=== PATIENT | female | born 1960 | race Caucasian/White ===

== ENCOUNTER 2017-03-05 12:47 | Emergency (ER) | payer BC ==
[2017-03-05 14:56] VITALS: BP 133/65
--- NOTE | 2017-03-05 15:01 | UC ---
Lower Extremity/Ankle HPI - HPI Summary HPI Summary: fell bruising right proximal radius/ and left knee--full ROM but is painful - History of Current Complaint Chief Complaint: UCGeneralIllness Stated Complaint: RIGHT ARM/LEFT KNEE PAIN S/P FALL Time Seen by Provider: 03/05/17 14:52 Hx Obtained From: Patient ?: No Onset/Duration: Sudden Onset, Lasting Days, Still Present Severity Initially: Mild Severity Currently: Mild Aggravating Factor(s): Standing, Ambulation Alleviating Factor(s): Rest, Elevation Able to Bear Weight: Yes - Allergies/Home Medications Allergies/Adverse Reactions: Allergies Allergy/AdvReac Type Severity Reaction Status Date / Time Adhesive Tape Allergy Unknown Verified 03/05/17 14:44 Reaction Details Amoxicillin [From Augmentin] Allergy GI PROBLEMS Verified 03/05/17 14:44 Clavulanic Acid Allergy GI PROBLEMS Verified 03/05/17 14:44 [From Augmentin] Clindamycin Allergy GI PROBLEMS Verified 03/05/17 14:44 Latex Allergy SWELLING, Verified 03/05/17 14:44 BREATHING PROBLEMS Quinidine Allergy GI PROBLEMS Verified 03/05/17 14:44 Sulfa Antibiotics Allergy GI Verified 03/05/17 14:44 PEPPER Allergy GI Uncoded 03/05/17 14:44 PROBLEMS/BREATHING STERI-STRIPS Allergy Unknown Uncoded 03/05/17 14:44 Reaction Details Home Medications: Home Medications Ropinirole TAB* [Requip TAB*] 0.5 mg BEDTIME 03/05/17 [History Confirmed ] PMH/Surg Hx/FS Hx/Imm Hx Previously Healthy: No Endocrine History: Dyslipidemia Cardiovascular History: Hypertension Respiratory History: Asthma GI/ History: Gastroesophageal Reflux Psychological History: Depression - Surgical History Surgical History: Yes Surgery Procedure, Year, and Place: ; TUBAL LIGATION; D&C WITH ABLATION ; ESOPHAGEAL DILATION- WITH SEDATION COLONOSCOPY WITH SEDATION - Family History Known Family History: Positive: None - Social History Occupation: Employed Full-time Lives: With Family Alcohol Use: None Substance Use Type: None Smoking Status (MU): Never Smoked Tobacco - Immunization History Most Recent Influenza Vaccination: 2016 Review of Systems Constitutional: Negative Skin: Bruising - right proximal forearm, Eyes: Negative ENT: Negative Respiratory: Negative Cardiovascular: Negative Gastrointestinal: Negative Genitourinary: Negative Motor: Negative Neurovascular: Negative Musculoskeletal: Negative, Arthralgia - right fore arm, left knee Neurological: Negative Psychological: Negative Is Patient Immunocompromised?: No All Other Systems Reviewed And Are Negative: Yes Physical Exam Triage Information Reviewed: Yes Appearance: Well-Appearing, No Pain Distress, Well-Nourished Vital Signs: Initial Vital Signs Temp 98.4 F 03/05/17 14:47 Pulse 81 03/05/17 14:47 Resp 16 03/05/17 14:47 BP 133/65 03/05/17 14:47 Pulse Ox 100 03/05/17 14:47 Vital Signs Reviewed: Yes Eye Exam: Normal Eyes: Positive: Conjunctiva Clear ENT Exam: Normal ENT: Positive: Normal ENT inspection, Hearing grossly normal. Negative: Nasal congestion, Trismus, Muffled voice, Hoarse voice Dental Exam: Normal Neck exam: Normal Neck: Positive: Supple, Nontender, No Lymphadenopathy Respiratory Exam: Normal Respiratory: Positive: Chest non-tender, Lungs clear, Normal breath sounds, No respiratory distress, No accessory muscle use Cardiovascular Exam: Normal Cardiovascular: Positive: RRR, No Murmur, Pulses Normal, Brisk Capillary Refill Musculoskeletal Exam: Normal Musculoskeletal: Positive: Strength Intact, ROM Intact, No Edema Neurological Exam: Normal Neurological: Positive: Alert Psychological Exam: Normal Skin Exam: Other Skin: Positive: Other - bruising right proximal fore arm Diagnostics - Radiology No standard instances Xray Interpretation: No Acute Changes Radiology Interpretation Completed By: Radiologist Lower Extremity Course/Dx - Course Course Of Treatment: rice, ibuprofen christin wrap follow with orthopedic MD in [place] as needed - Differential Dx/Diagnosis Provider Diagnoses: Contusion right forearm and left knee Discharge - Discharge Plan Condition: Stable Disposition: HOME Patient Education Materials: Contusion in Adults (ED), RICE Therapy (ED) Referrals: Kim Callahan MD [Primary Care Provider] - Additional Instructions: Follow with your orthopedic MD for further care and evaluation
--- NOTE | 2017-03-05 15:48 | RAD ---
INDICATION: Right elbow pain after a fall COMPARISON: None. TECHNIQUE: 4 views right elbow. REPORT: The visualized bones of the right elbow are well corticated and properly aligned. There is no radiographically apparent fracture or dislocation. There is no radiographic evidence of pathologic joint effusion. IMPRESSION: Normal radiograph of the right elbow. If the patient's symptoms persist further follow-up imaging is recommended.
--- NOTE | 2017-03-05 15:50 | RAD ---
INDICATION: Left knee pain after a fall COMPARISON: Bilateral knee radiograph dated September 25, 2008 TECHNIQUE: 4 view radiograph of the left knee. FINDINGS: The visualized bones are well-corticated and properly aligned. Mild degenerative changes include narrowing of the medial compartment with mild sclerotic change of the articulating tibial plateau. There is a mild degree of narrowing of the patellofemoral joint with superior and inferior pole osteophyte formation. This has progressed since the previous 2009 the radiograph. On the lateral view radiograph there is a small suprapatellar joint effusion, new since the previous knee radiograph. There is no acute fracture, dislocation or other focal bony abnormality. IMPRESSION: Mild degenerative changes of the left knee, progressive since the August 26, 2008 the radiograph as well as small suprapatellar joint effusion. If the patient's symptoms persist, follow-up imaging is recommended.
== END 2017-03-05 16:05 | disposition home or self-care (01) ==
LOC: UCCORT 12:47
DX: S50.11XA Contusion of right forearm, initial encounter (principal); S80.02XA Contusion of left knee, initial encounter; W19.XXXA Unspecified fall, initial encounter; Y92.9 Unspecified place or not applicable; M17.12 Unilateral primary osteoarthritis, left knee; M25.462 Effusion, left knee; Z88.1 Allergy status to other antibiotic agents; Z88.8 Allergy status to other drugs, medicaments and biological substances; Z88.2 Allergy status to sulfonamides; I10 Essential (primary) hypertension; J45.909 Unspecified asthma, uncomplicated
CPT/HCPCS: 99211; G0463

== ENCOUNTER 2017-08-05 21:22 | Emergency (ER) | payer BC ==
[2017-08-05 21:44] VITALS: BP 123/62
--- NOTE | 2017-08-05 21:48 | UC ---
UC General HPI - HPI Summary HPI Summary: pt states hx chronic uti's. her urologist called in cipro 250mg to her pharmacy ; however,it was to late for her to get it(they closed). she would like a dose tonight until she can get the script in the am - History of Current Complaint Stated Complaint: URINARY Time Seen by Provider: 08/05/17 21:40 Hx Obtained From: Patient Onset/Duration: Gradual Onset - today Timing: Constant Aggravating: nothing Alleviating: nothing Associated Signs & Symptoms: Positive: Dysuria. Negative: Abdominal Pain, Fever - Allergy/Home Medications Allergies/Adverse Reactions: Allergies Allergy/AdvReac Type Severity Reaction Status Date / Time Adhesive Tape Allergy Unknown Verified 08/05/17 21:45 Reaction Details MS Amoxicillin Allergy GI PROBLEMS Verified 08/05/17 21:45 [From Augmentin] MS Clavulanic Acid Allergy GI PROBLEMS Verified 08/05/17 21:45 [From Augmentin] MS Clindamycin [Clindamycin] Allergy GI PROBLEMS Verified 08/05/17 21:45 MS Latex [Latex] Allergy SWELLING, Verified 08/05/17 21:45 BREATHING PROBLEMS MS Quinidine [Quinidine] Allergy GI PROBLEMS Verified 08/05/17 21:45 MS Sulfa Antibiotics Allergy GI Verified 08/05/17 21:45 [Sulfa Antibiotics] PEPPER Allergy GI Uncoded 08/05/17 21:45 PROBLEMS/BREATHING STERI-STRIPS Allergy Unknown Uncoded 08/05/17 21:45 Reaction Details PMH/Surg Hx/FS Hx/Imm Hx - Additional Past Medical History Additional PMH: chronic UTI's Respiratory History: Asthma Neurological History: Migraine Psychological History: Depression - Surgical History Surgical History: Yes Surgery Procedure, Year, and Place: ; TUBAL LIGATION; D&C WITH ABLATION ; ESOPHAGEAL DILATION- WITH SEDATION COLONOSCOPY WITH SEDATION - Family History Known Family History: Positive: None - Social History Alcohol Use: None Substance Use Type: None Smoking Status (MU): Never Smoked Tobacco - Immunization History Most Recent Influenza Vaccination: 2017 Vaccination Up to Date: Yes Review of Systems Constitutional: Negative Skin: Negative Eyes: Negative ENT: Negative Respiratory: Negative Cardiovascular: Negative Gastrointestinal: Negative Genitourinary: Dysuria, Frequency, Urgency Motor: Negative Neurovascular: Negative Musculoskeletal: Negative Neurological: Negative Psychological: Negative Is Patient Immunocompromised?: No All Other Systems Reviewed And Are Negative: Yes Physical Exam Triage Information Reviewed: Yes Appearance: Well-Appearing Vital Signs Reviewed: Yes Eyes: Positive: Conjunctiva Clear ENT: Positive: Normal ENT inspection Neck: Positive: Supple, Nontender, No Lymphadenopathy Respiratory: Positive: Lungs clear, Normal breath sounds Cardiovascular: Positive: RRR, No Murmur Abdomen Description: Positive: Nontender, No Organomegaly, Soft. Negative: CVA Tenderness (R), CVA Tenderness (L), Distended, Guarding Bowel Sounds: Positive: Present Musculoskeletal: Positive: ROM Intact Neurological: Positive: Alert Psychological: Positive: Age Appropriate Behavior Skin Exam: Normal Course/Dx - Course Course Of Treatment: non toxic, took azo [employer] thus no u/a, will send urine culture and tx with 1 st dose of cipro here. - Differential Dx - Multi-Symptom Provider Diagnoses: dysuria Discharge - Sign-Out/Discharge Documenting (check all that apply): Discharge/Admit/Transfer - Discharge Plan Condition: Stable Disposition: HOME Patient Education Materials: Urinary Tract Infection in Women (DC) Referrals: Marino Simon MD [Medical Doctor] - 7 Days Kim Callahan MD [Primary Care Provider] - If Needed - Billing Disposition and Condition Condition: STABLE Disposition: HOME
[2017-08-05] MEDS ORDERED: Ciprofloxacin TAB* 250 MG PO ONE (21:53)
== END 2017-08-05 22:04 | disposition home or self-care (01) ==
LOC: UCCORT 21:22
DX: R30.0 Dysuria (principal); Z91.09 Other allergy status, other than to drugs and biological substances; Z88.0 Allergy status to penicillin; Z88.1 Allergy status to other antibiotic agents; Z88.2 Allergy status to sulfonamides; Z91.040 Latex allergy status; Z91.018 Allergy to other foods
CPT/HCPCS: 87077; 87086; 87186; 99211; 99212; A9270-GY; G0463

== ENCOUNTER 2017-09-15 13:15 | Emergency (ER) | payer BC ==
[2017-09-15 14:00] VITALS: BP 136/66
--- NOTE | 2017-09-15 14:54 | UC ---
Dizzy HPI - History Of Current Complaint Chief Complaint: UCDizziness Stated Complaint: DIZZY/EAR ACHE/URINARY Time Seen by Provider: 09/15/17 14:48 Pain Intensity: 3 - Risk Factors Cardiac Risk Factors: Negative CVA Risk Factor: Negative - Allergies/Home Medications Allergies/Adverse Reactions: Allergies Allergy/AdvReac Type Severity Reaction Status Date / Time Adhesive Tape Allergy Unknown Verified 08/05/17 21:45 Reaction Details MS Amoxicillin Allergy GI PROBLEMS Verified 08/05/17 21:45 [From Augmentin] MS Clavulanic Acid Allergy GI PROBLEMS Verified 08/05/17 21:45 [From Augmentin] MS Clindamycin [Clindamycin] Allergy GI PROBLEMS Verified 08/05/17 21:45 MS Latex [Latex] Allergy SWELLING, Verified 08/05/17 21:45 BREATHING PROBLEMS MS Quinidine [Quinidine] Allergy GI PROBLEMS Verified 08/05/17 21:45 MS Sulfa Antibiotics Allergy GI Verified 08/05/17 21:45 [Sulfa Antibiotics] PEPPER Allergy GI Uncoded 08/05/17 21:45 PROBLEMS/BREATHING STERI-STRIPS Allergy Unknown Uncoded 08/05/17 21:45 Reaction Details Home Medications: Home Medications Cholestyramine Resin* [Questran*] 4 gm PO DAILY 09/15/17 [History Confirmed ] Prasterone (Dhea)/Calcium Carb [Dhea 50 mg Tablet] 1 each PO DAILY 09/15/17 [ History Confirmed 09/15/17] PMH/Surg Hx/FS Hx/Imm Hx Previously Healthy: Yes Endocrine History: Dyslipidemia Cardiovascular History: Hypertension Respiratory History: Asthma GI/ History: Other - incontinence Other GI/ History: dysuria now resolved Psychological History: Anxiety - Surgical History Surgical History: Yes Surgery Procedure, Year, and Place: ; TUBAL LIGATION; D&C WITH ABLATION ; HYSTERECTOMY; ESOPHAGEAL DILATION- WITH SEDATION COLONOSCOPY WITH SEDATION - Family History Known Family History: Positive: None - Social History Alcohol Use: None Substance Use Type: None Smoking Status (MU): Never Smoked Tobacco - Immunization History Most Recent Influenza Vaccination: 2017 Vaccination Up to Date: Yes Review of Systems Constitutional: Negative Skin: Negative ENT: Other - positional vertigo Respiratory: Negative Cardiovascular: Negative Gastrointestinal: Negative Genitourinary: Other - incontinence Psychological: Anxious Is Patient Immunocompromised?: No All Other Systems Reviewed And Are Negative: Yes Physical Exam Triage Information Reviewed: Yes Appearance: Well-Appearing Vital Signs: Initial Vital Signs Temp 37.1 C 09/15/17 13:46 Pulse 78 09/15/17 13:46 Resp 18 09/15/17 13:46 BP 136/66 09/15/17 13:46 Pulse Ox 99 09/15/17 13:46 Vital Signs Reviewed: Yes Eyes: Positive: Conjunctiva Clear ENT: Positive: TMs normal, Other - end stage nystagmus looking rightward positive for positional vertigo on [employer] Dental Exam: Normal Neck: Positive: Supple Respiratory Exam: Normal Respiratory: Positive: Chest non-tender, Lungs clear Cardiovascular: Positive: RRR Musculoskeletal Exam: Normal Dizzy Course/Dx - Course Course Of Treatment: positive for positional vertigo on [employer] - Differential Dx/Diagnosis Provider Diagnoses: BPPV Discharge - Sign-Out/Discharge Documenting (check all that apply): Patient Departure - Discharge Plan Condition: Good Disposition: HOME Patient Education Materials: Benign Paroxysmal Positional Vertigo (ED) Referrals: Kim Callahan MD [Primary Care Provider] - - Billing Disposition and Condition Condition: GOOD Disposition: Home
== END 2017-09-15 15:08 | disposition home or self-care (01) ==
LOC: UCCORT 13:15
DX: H81.10 Benign paroxysmal vertigo, unspecified ear (principal); J45.909 Unspecified asthma, uncomplicated; E78.5 Hyperlipidemia, unspecified; I10 Essential (primary) hypertension; Z91.09 Other allergy status, other than to drugs and biological substances; Z88.0 Allergy status to penicillin; Z88.1 Allergy status to other antibiotic agents; Z91.040 Latex allergy status; Z88.2 Allergy status to sulfonamides; Z91.02 Food additives allergy status; Z88.8 Allergy status to other drugs, medicaments and biological substances; Z79.899 Other long term (current) drug therapy
CPT/HCPCS: 99211; G0463